=== PATIENT | male | born 1995 | race Two or more races ===

== ENCOUNTER 2023-10-06 21:49 | Emergency (ER) | payer OTHER ==
[~2023-10-06] VITALS: Ht 167.6 cm; Wt 97.0 kg
[2023-10-06 22:00] VITALS: BP 121/78; PULSE 71; RESP 20; TEMP 98.1
== END 2023-10-07 01:30 | disposition left against medical advice (07) ==
LOC: EMS 21:49
DX: R11.10 Vomiting, unspecified (principal); Z53.21 Procedure and treatment not carried out due to patient leaving prior to being seen by health care provider